=== PATIENT | male | born 1940 | race Caucasian/White ===

== ENCOUNTER 2019-05-13 12:45 | Inpatient (IN) | payer MEDICARE, OTHER ==
[~2019-05-13] VITALS: Ht 162.6 cm; Wt 64.9 kg
[2019-05-13] MEDS ORDERED: SODIUM CHLORIDE 0.9% 1,000 ML IV ONE (13:44)
[2019-05-13 15:06] LABS: CHLORIDE 101 mEq/L (98-107); EOSINOPHILS % 1.2 % (0.0-5.0); HEMOGLOBIN. 11.9 g/dL (14.0-18.0); LYMPHOCYTES % 15.4 % (20.0-50.0); MEAN CORPUSCULAR HEMOGLOBIN 32.7 pg (28.0-32.0); MEAN PLATELET VOLUME 7.9 fl (7.4-10.4); MONOCYTES % 7.3 % (2.0-8.0); NEUTROPHILS % 75.1 % (40.0-76.0); PLATELET 189 x1000/uL (130-400); RED BLOOD CELL COUNT 3.65 mill/uL (4.7-6.1); RED CELL DISTRIBUTION WIDTH 14.7 % (11.6-14.6)
[2019-05-13 15:09] LABS: INR 1.1; PROTHROMBIN TIME 10.9 sec (9.6-11.0)
[2019-05-13] MEDS ORDERED: ASPIRIN 325MG EC TABLET PO ONE (15:30)
[2019-05-13 16:30] LABS: CLARITY URINE CLEAR (CLEAR); COLOR URINE YELLOW (YELLOW); KETONES URINE NEGATIVE (NEGATIVE); LEUKOCYTE ESTERASE URINE NEGATIVE (NEGATIVE); NITRITE URINE NEGATIVE (NEGATIVE); OCCULT BLOOD URINE 1+ (NEGATIVE); PROTEIN URINE TRACE (NEGATIVE); SPECIFIC GRAVITY URINE 1.014 (1.005-1.030)
[2019-05-13] MEDS ORDERED: CLONIDINE 0.1MG TABLET PO PRN (16:45)
[2019-05-13] MEDS ORDERED: DIPHENHYDRAMINE 50MG/ML VIAL IV PRN (16:45)
[2019-05-13] MEDS ORDERED: ACETAMINOPHEN 650MG SUPP PR PRN (16:45)
[2019-05-13] MEDS ORDERED: DOCUSATE SODIUM 100MG CAPSULE PO PRN (16:45)
[2019-05-13] MEDS ORDERED: ACETAMINOPHEN 650MG/20.3ML UDC GT PRN (16:45)
[2019-05-13] MEDS ORDERED: NA PHOS,M-B/NA PHOS,DI-BA ENEMA 118ML PR PRN (16:45)
[2019-05-13] MEDS ORDERED: GUAIFENESIN 200MG/10ML SUGAR FREE UDC PO PRN (16:45)
[2019-05-13] MEDS ORDERED: IPRATROPIUM/ALBUTEROL 0.5-3(2.5)MG/3ML NEB HHN PRN (16:45)
[2019-05-13] MEDS ORDERED: ACETAMINOPHEN 325MG TABLET PO PRN (16:45)
[2019-05-13] MEDS ORDERED: MAGNESIUM/ALUMINUM HYDROXIDE/SIMETHICONE 30ML UDC PO PRN (16:45)
[2019-05-13] MEDS ORDERED: ONDANSETRON HCL 4MG/2ML INJ IV PRN (16:45)
[2019-05-13] MEDS: ENOXAPARIN 30MG/0.3ML SYR SUBCUT SCH (20:53)
[2019-05-13 22:30] VITALS: BP 112/53
[2019-05-13 23:40] VITALS: BP 140/82
[2019-05-14 00:19] VITALS: BP 140/82
[2019-05-14 00:24] LABS: CREATINE KINASE MB FRACTION 41.9 ng/mL (0.5-3.6)
[2019-05-14 00:35] LABS: CREATINE KINASE 2840 IU/L (39-308)
[2019-05-14] MEDS ORDERED: ATEN1POW2 MC (00:44)
[2019-05-14] MEDS ORDERED: MULT-1146 MT (00:44)
[2019-05-14] MEDS ORDERED: OMEP10CA5 MT (00:44)
[2019-05-14] MEDS ORDERED: HYDR1POW18 MC (00:44)
[2019-05-14] MEDS: SODIUM CHLORIDE 0.45% 1,000 ML IV SCH (03:37)
[2019-05-14 04:00] VITALS: BP 142/90
[2019-05-14 06:54] LABS: BASOPHILS % 1.1 % (0.0-2.0); EOSINOPHILS % 2.6 % (0.0-5.0); HEMATOCRIT. 37.8 % (42.0-52.0); HEMOGLOBIN. 12.7 g/dL (14.0-18.0); LYMPHOCYTES % 22.1 % (20.0-50.0); MEAN CORPUSCULAR HEMOGLOBIN 32.1 pg (28.0-32.0); MEAN CORPUSCULAR VOLUME 95.7 fL (80.0-94.0); MEAN PLATELET VOLUME 8.5 fl (7.4-10.4); NEUTROPHILS % 67.2 % (40.0-76.0); PLATELET 177 x1000/uL (130-400); RED BLOOD CELL COUNT 3.95 mill/uL (4.7-6.1); RED CELL DISTRIBUTION WIDTH 14.7 % (11.6-14.6)
[2019-05-14 07:19] LABS: CHLORIDE 102 mEq/L (98-107)
[2019-05-14 07:37] LABS: HDL CHOLESTEROL 67 mg/dL (40-59); LDL CHOLESTEROL 124 mg/dL (5-100)
[2019-05-14 07:42] LABS: CREATINE KINASE MB FRACTION 34.4 ng/mL (0.5-3.6)
[2019-05-14] MEDS ORDERED: POTASSIUM CHLORIDE 20MEQ TABLET SR PO NR (07:45)
[2019-05-14 07:51] LABS: CREATINE KINASE 2501 IU/L (39-308)
[2019-05-14 08:00] VITALS: BP 125/80
[2019-05-14] MEDS: HYDROCHLOROTHIAZIDE 25MG TABLET PO SCH (08:53)
[2019-05-14] MEDS: ATENOLOL 25MG TABLET PO SCH ×2 (08:54→21:05)
[2019-05-14] MEDS: OMEPRAZOLE 20MG CAPSULE EXTENDED RELEASE PO SCH (08:59)
[2019-05-14 09:16] LABS: *AMPHETAMINES SCREEN URINE NEGATIVE (NEGATIVE); *BARBITURATES SCREEN URINE NEGATIVE (NEGATIVE); *COCAINE SCREEN URINE NEGATIVE (NEGATIVE); CANNABINOID URINE SCREEN NEGATIVE (NEGATIVE); METHADONE URINE SCREEN NEGATIVE (NEGATIVE); OPIATES URINE SCREEN NEGATIVE (NEGATIVE); PHENCYCLIDINE URINE SCREEN NEGATIVE (NEGATIVE)
[2019-05-14 09:17] LABS: *BENZODIAZEPINES SCREEN URINE NEGATIVE (NEGATIVE)
[2019-05-14 12:00] VITALS: BP 126/70
[2019-05-14] MEDS ORDERED: SODIUM CHLORIDE 0.45% 1,000 ML IV SCH (13:45)
[2019-05-14] MEDS ORDERED: POTASSIUM CHLORIDE 20MEQ TABLET SR PO PRN (13:45)
[2019-05-14] MEDS: SODIUM CHLORIDE 0.9% INJ 3ML FLUSH IVF SCH (14:04)
[2019-05-14 20:00] VITALS: BP 110/66
[2019-05-14] MEDS: ENOXAPARIN 30MG/0.3ML SYR SUBCUT SCH (21:05)
[2019-05-15] VITALS (7 sets, daily range): BP systolic 109–120; BP diastolic 51–70
[2019-05-15] MEDS: OMEPRAZOLE 20MG CAPSULE EXTENDED RELEASE PO SCH (06:51)
[2019-05-15] MEDS: ATENOLOL 25MG TABLET PO SCH ×2 (09:00→20:39)
[2019-05-15] MEDS: HYDROCHLOROTHIAZIDE 25MG TABLET PO SCH (09:30)
[2019-05-15] MEDS: SODIUM CHLORIDE 0.45% 1,000 ML IV SCH (09:33)
[2019-05-15] MEDS: SODIUM CHLORIDE 0.9% INJ 3ML FLUSH IVF SCH (13:50)
[2019-05-15] MEDS: ENOXAPARIN 30MG/0.3ML SYR SUBCUT SCH (20:40)
[2019-05-16] MEDS ORDERED: FAMOTIDINE 20MG TABLET PO SCH (09:00)
== END 2019-05-15 22:05 | disposition short-term general hospital (02) | DRG 640 ==
LOC: ER 12:55 → 6WST 16:43 → EDBEDREQ 16:52 → EDBEDREQTM 16:52 → ENRESERV 21:07 → 6EST 23:47
PROVIDERS: ADMIT Family Medicine; ATTEND Family Medicine
DX: E87.6 Hypokalemia (principal); N17.0 Acute kidney failure with tubular necrosis; M62.82 Rhabdomyolysis; J98.11 Atelectasis; E44.1 Mild protein-calorie malnutrition; E87.1 Hypo-osmolality and hyponatremia; E86.0 Dehydration; K59.00 Constipation, unspecified; D63.8 Anemia in other chronic diseases classified elsewhere; H51.0 Palsy (spasm) of conjugate gaze; G62.9 Polyneuropathy, unspecified; E78.5 Hyperlipidemia, unspecified; I11.9 Hypertensive heart disease without heart failure; K30 Functional dyspepsia; I71.2 Thoracic aortic aneurysm, without rupture; R26.9 Unspecified abnormalities of gait and mobility; Z86.73 Personal history of transient ischemic attack (TIA), and cerebral infarction without residual deficits; Z68.24 Body mass index [BMI] 24.0-24.9, adult
CPT/HCPCS: 36415; 71045; 80053; 80061; 80305; 81003; 82550; 82553; 82962; 83605; 84484; 85025; 93005; 97162; 97166; 99285; J1650; J7030